=== PATIENT | male | born 1990 | race American Indian/Alaskan Native ===

== ENCOUNTER 2017-03-03 08:56 | Emergency (ER) | payer SELFPAY ==
[2017-03-03 10:12] VITALS: BP 128/90
== END 2017-03-03 10:09 | disposition left against medical advice (07) ==
LOC: ED 08:56
DX: T78.40XA Allergy, unspecified, initial encounter (principal); Z53.21 Procedure and treatment not carried out due to patient leaving prior to being seen by health care provider